=== PATIENT | female | born 1945 | race Hispanic/Latino ===

== ENCOUNTER → 2024-02-27 | Outpatient (CLI) | payer OTHER, MEDICARE | END | disposition home or self-care (01) | LOC: RAH 07:44 | DX: R74.01 Elevation of levels of liver transaminase levels (principal) | CPT/HCPCS: 76705 ==

== ENCOUNTER → 2024-03-14 | Outpatient (CLI) | payer OTHER, MEDICARE ==
[2024-03-14 08:33] LABS: INR 1.23 (0.85-1.15); PROTHROMBIN TIME 13.1 SEC (9.6-11.6)
[2024-03-14 08:35] LABS: PARTIAL THROMBOPLASTIN TIME 27.2 SEC (26.3-35.5)
== END | disposition home or self-care (01) ==
LOC: RAH 07:37
DX: R19.00 Intra-abdominal and pelvic swelling, mass and lump, unspecified site (principal); C82.25 Follicular lymphoma grade III, unspecified, lymph nodes of inguinal region and lower limb; E78.5 Hyperlipidemia, unspecified; E11.65 Type 2 diabetes mellitus with hyperglycemia; R80.9 Proteinuria, unspecified; D84.89 Other immunodeficiencies; D84.81 Immunodeficiency due to conditions classified elsewhere; Z90.710 Acquired absence of both cervix and uterus; Z79.01 Long term (current) use of anticoagulants; Z88.5 Allergy status to narcotic agent; Z88.8 Allergy status to other drugs, medicaments and biological substances
CPT/HCPCS: 36415; 38505; 76942; 85610; 85730; 88305; 88323; 88341; 88342; 88377

== ENCOUNTER → 2024-06-14 | Outpatient (CLI) | payer OTHER, MEDICARE | END | disposition home or self-care (01) | LOC: RAH 13:53 | DX: N13.2 Hydronephrosis with renal and ureteral calculous obstruction (principal); N23 Unspecified renal colic | CPT/HCPCS: 74176 ==

== ENCOUNTER → 2025-01-15 | Outpatient (CLI) | payer MEDICARE ==
--- NOTE | 2025-01-15 15:06 | HMCIMG ---
DEXA BONE DENSITY SURVEY REASON: Other specified disorders of bone density and structure, multiple sites COMPARISON: None TECHNIQUE: DEXA bone densitometry was performed in the lumbar spine and left hip. FINDINGS: Mean bone mass density in the spine is 0.995 g present with square, T score -0.5, within normal limits. L1 T score is -1.1 corresponding with osteopenia. The total proximal femur T score is -2.0 with femoral neck T score -2.1, also consistent with osteopenia. IMPRESSION: 1. Osteopenia indicating a moderate fracture risk.
== END | disposition home or self-care (01) ==
LOC: RAH 09:11
PROVIDERS: ATTEND Internal Medicine
DX: M85.89 Other specified disorders of bone density and structure, multiple sites (principal)
CPT/HCPCS: 77080

== ENCOUNTER → 2025-05-14 | Outpatient (CLI) | payer MEDICARE ==
--- NOTE | 2025-05-14 18:59 | HMCIMG ---
EXAM: XR Right Hand, 4 View. CLINICAL HISTORY: 79-year-old female, trigger finger of right thumb. COMPARISON: None provided. 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 SOFT TISSUES: The soft tissues are unremarkable. IMPRESSION: 1. 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 /[place]
== END | disposition home or self-care (01) ==
LOC: RAH 14:25
PROVIDERS: ATTEND Internal Medicine
DX: M19.041 Primary osteoarthritis, right hand (principal); M65.311 Trigger thumb, right thumb
CPT/HCPCS: 73130